=== PATIENT | male | born 1970 | race Caucasian/White ===

== ENCOUNTER 2019-08-30 15:26 | Emergency (ER) | payer SELFPAY ==
[~2019-08-30] VITALS: Ht 190.5 cm; Wt 100.0 kg
[~2019-08-30 15:26] MED LIST: ASPIRIN 32325 MG/TAB PO
[2019-08-30 15:43] VITALS: BP 137/76; TEMP 98.2
[2019-08-30] MEDS ORDERED: DOXYCYCLINE HY100 MG PO (16:24)
[2019-08-30 17:17] VITALS: PULSE 92
== END 2019-08-30 17:16 | disposition home or self-care (01) ==
LOC: COL.ER 15:26
DX: L03.317 Cellulitis of buttock (principal); I10 Essential (primary) hypertension; Z88.0 Allergy status to penicillin

== ENCOUNTER 2023-08-30 07:24 | Observation (INO) | payer BC ==
[2023-08-30] VITALS (8 sets, daily range): BP systolic 114–152; BP diastolic 74–89; PULSE 66–75; TEMP 98–98.3
[~2023-08-30] VITALS: Ht 190.5 cm; Wt 104.0 kg
[~2023-08-30 07:24] MED LIST changes: +DOXYCYCLINE HY100 MG PO
[2023-08-30 08:00] LABS: BASO # 0.1 K/mm3 (0.0-0.2); BASO % 0.9 % (0.0-2.0); EOS # 0.2 K/mm3 (0.0-0.7); EOS % 2.5 % (0.0-4.0); GRAN # 4.7 K/mm3 (1.4-6.5); GRAN % 61.8 % (42.2-75.2); HEMATOCRIT 46.5 % (42.0-52.0); HEMOGLOBIN 15.7 g/dl (13.5-18.0); LYMPH # 2.2 K/mm3 (1.2-3.4); LYMPH % 28.2 % (20.0-51.0); MEAN CELL VOLUME 88 fl (80.0-100.0); MEAN CORPUSCULAR HEMOGLOBIN 30 pg (27-31); MEAN CORPUSCULAR HGB CONC 34 g/dl (33.0-37.0); MEAN PLATELET VOLUME 9.7 fl (7.4-10.4); MONO # 0.5 K/mm3 (0.1-0.6); MONO % 6.5 % (1.7-9.3); PLATELET COUNT 284 K/mm3 (130-400); REDCELL DISTRIBUTION WIDTH-CV 12.7 % (11.5-14.5)
[2023-08-30 08:12] LABS: ALANINE AMINOTRANSFERASE 21 U/L (0-55); ALBUMIN 3.7 gm/dL (3.5-5.0); ALKALINE PHOSPHATASE 54 U/L (40-150); ANION GAP 9 mmol/L (7-16); AST,SGOT 21 U/L (5-34); BILIRUBIN,TOTAL 0.4 mg/dL (0.2-1.2); BLOOD UREA NITROGEN 20 mg/dL (8-26); CALCIUM 9.1 mg/dL (8.4-10.2); CARBON DIOXIDE 22 mmol/L (22-29); CHLORIDE 109 mmol/L (98-107); CREATININE, serum 1.36 mg/dL (0.72-1.25); GLUCOSE 110 mg/dL (70-99); POTASSIUM 4.8 mmol/L (3.5-4.5); SODIUM 140 mmol/L (136-145); TOTAL PROTEIN 6.6 gm/dL (6.2-8.1)
[2023-08-30 08:32] LABS: TSH w REFLEX 2.455 uIU/mL (0.350-4.940)
[2023-08-30 08:38] LABS: TROPONIN-I < 0.010 ng/mL (0.00-0.033)
[2023-08-30] MEDS ORDERED: PRINIVIL20 MG PO (11:24)
[2023-08-30] MEDS ORDERED: VTAMINC250TA (11:25)
[2023-08-30] MEDS ORDERED: VITAMIND3 5000 PO (11:25)
--- NOTE | 2023-08-30 13:07 | NUR ---
Patient arrived to the medical unit aproximately 1230 hrs, alert and oriented x 4, VSS. Right radial compression band with 12cc in place. Assessment intake done.
[2023-08-30 13:19] LABS: PHOSPHOROUS 2.5 mg/dL (2.3-4.7)
[2023-08-30] MEDS ORDERED: ASPIRIN E.C. 8181 MG PO (16:07)
[2023-08-30] MEDS ORDERED: PEPCID 20MG TAB20 MG PO (16:08)
--- NOTE | 2023-08-30 16:38 | NUR ---
Patient and were provided with discharge information, all questions answered. IV access and telemetry were discontinued.
== END 2023-08-30 16:40 | disposition home or self-care (01) ==
LOC: COL.ER 07:24 → MEDICAL 11:20
PROVIDERS: Family Medicine; Nurse Practitioner Family; ADMIT Internal Medicine
DX: R07.89 Other chest pain (principal); I10 Essential (primary) hypertension; Z79.899 Other long term (current) drug therapy; Z28.310 Unvaccinated for COVID-19
CPT/HCPCS: G0378; J1644; J1885; J2250; J3010